=== PATIENT | female | born 2005 | race Two or more races ===

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

== ENCOUNTER 2025-02-03 12:30 | Emergency (ER) | payer MEDICAID, SELFPAY ==
[2025-02-03 12:48] VITALS: BP 125/84; PULSE 69; RESP 16; TEMP 36.8; O2SAT 97; BMI 38.8
--- NOTE | 2025-02-03 12:52 | ED_ITS ---
HPI - Eye Problem General Chief complaint: Eye Problems Stated complaint: L eye swelling Time Seen by Provider: 02/03/25 14:27 Source: patient Mode of arrival: ambulatory Limitations: no limitations History of Present Illness ED Provider: JESSY GOFF PA-C HPI Narrative: 20 year old healthy female presents to the ED today for evaluation of swelling around left eye x a few hours. Reports waking up with swelling around left eye. No crusting/ discharge. Denies eye pain. Patient does not wear corrective lenses. Denies vision changes, fever/chills. Denies trauma/ injury to the eye. No known allergies. No associated nasal congestion, sore throat, ear pain, sob, cough. no new soaps/ lotions/ detergents/ meds. 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 Related Data Previous Rx's ?Medication ?Instructions ?Recorded doxycycline hyclate 100 mg capsule 100 mg PO BID 7 days #14 caps 12/15/21 fluconazole 150 mg tablet 150 mg PO DAILY #1 tab 12/15/21 fluconazole 150 mg tablet 150 mg PO Q3D 2 doses #2 tabs 12/18/21 (Diflucan) metronidazole 500 mg tablet 500 mg PO BID 7 days #14 tabs 12/18/21 cefpodoxime 200 mg tablet 200 mg PO Q12H 10 days #20 tabs 01/22/22 ibuprofen 600 mg tablet 600 mg PO Q8H PRN pain #14 tabs 05/07/24 ibuprofen 600 mg tablet 600 mg PO Q8H PRN fever or pain 08/17/24 #20 tabs nitrofurantoin 100 mg PO Q12H 7 days #14 caps 08/17/24 monohydrate/macrocrystals 100 mg capsule (Macrobid) dicyclomine 20 mg tablet 20 mg PO BID PRN abdominal pain #7 09/13/24 tabs ondansetron HCl 4 mg tablet 4 mg PO Q8H PRN nausea and 09/13/24 vomiting #10 tabs ondansetron HCl 4 mg tablet 4 mg PO Q8H PRN nausea and 09/28/24 vomiting #10 tabs sucralfate 100 mg/mL oral 10 ml PO QID PRN gerd #200 mL 09/28/24 suspension (Carafate) dicyclomine 20 mg tablet 20 mg PO BID PRN diarrhea #7 tabs 10/05/24 ondansetron HCl 4 mg tablet 4 mg PO Q8H PRN nausea and 10/05/24 vomiting #10 tabs diphenhydramine HCl 25 mg capsule 50 mg (2 x 25 mg) PO Q8H PRN 02/03/25 (Benadryl) allergic reaction #30 caps prednisone 20 mg tablet 20 mg PO DAILY 5 days #5 tabs 02/03/25 Allergies Allergy/AdvReac Type Severity Reaction Status Date / Time No Known Allergies Allergy Verified 02/04/25 07:15 Review of Systems Review of Systems: Constitutional: No fever, chills, fatigue, night sweats, weight changes ENT/Mouth: No ear pain, hearing loss, nasal congestion, sinus pain, rhinorrhea, sore throat Eyes: No redness, vision changes, discharge, +eye swelling Cardio: No chest pain, palpitations, JALLOH, orthopnea, peripheral edema Pulm: No SOB, cough, sputum, wheezing, dyspnea, hemoptysis GI: No nausea, vomiting, hematemesis, abdominal pain, diarrhea, constipation, hematochezia, melena : No irregular bleeding, dysuria, frequency, urgency, hesitancy, hematuria, flank pain, urinary flow changes, urinary incontinence or retention MSK: No back pain, neck pain, joint pain, myalgias Skin: No lesions, rashes Neuro: No weakness, numbness, paresthesias, LOC, dizziness, headache Psych: No anxiety/panic, depression, SI/HI, AH/VH All other systems reviewed and are negative. [facility], [facility] Past Medical History Attestation statement: The following information was validated with the patient. Source: old records reviewed and nursing notes reviewed Medical History No pertinent past medical history Social History Social History Smoked in Last 30 Days: No Use of substances other than those prescribed or required for medical reasons: No Advance Directives: No Advance Directives Information Provided: Yes Do you have a plan to hurt others: No Plan Patient : No Physical Exam Vital Signs: Vital Signs: Last Vital Signs Temp 98.3 F 02/03/25 14:37 Pulse 69 02/03/25 14:37 Resp 16 02/03/25 14:37 BP 125/84 02/03/25 14:37 Pulse Ox 97 02/03/25 14:37 O2 Del Method Room Air 02/03/25 14:37 BMI result Body Mass Index 38.8 vital signs stable, afebrile General: Well appearing, in no acute distress. Skin: Warm, dry, intact. No rashes or lesions. Head: Normocephalic, atraumatic. no tenderness to percussion of maxillary sinuses. EENT: Hearing is intact b/l. b/l TMs and EACs wnl. Moist mucous membranes.?Minimal periorbial swelling to L eye w/o erythema/ warmth/ crusting. No enophthalmous or exopthalmous. EOMs intact without pain or entrapment. PERRLA. no photophobia. No obvious foreign body or abrasion. No conjunctival injection or chemosis. No hazy cornea. Neck: Supple without LAD Cardiac: Chest wall symmetric. RRR Lungs: CTA b/l, normal respiratory effort Ext: Upper and lower extremities atraumatic, without tenderness, deformity, swelling or erythema Neuro: AOx3. Normal speech. Ambulating with steady gait Course Course Course Narrative: 02/03/25 1253 TIMOTHY Vigil This is a Rapid Medical Examination (RME) performed by Bao Goff PA-C in triage. Full HPI, ROS, assessment and treatment plan per primary provider in the Main ED. Hx: 19 yo F here for eval of atraumatic L eye swelling on waking this morning. no crusting/discharge. no known allergies. no new soaps/lotions/detergents/meds. PE/vitals: noted periorbital swelling to L eye. no conjunctivitis, no crusting, no drainage, no pain on EOMs. Plan: benadryl given in triage Medications Administered Discontinued Medications Generic Name Dose Route Start Last Admin Trade Name Freq PRN Reason Stop Dose Admin Diphenhydramine HCl 25 mg 02/03/25 12:52 02/03/25 12:55 Diphenhydramine Hcl 25 Mg Capsule PO 02/03/25 12:53 25 mg ONCE ONE Administration Medical Decision Making Medical Decision Making MDM Narrative: 20 year old healthy female presents to the ED today for evaluation of swelling around left eye x a few hours. on exam, minimal periorbial swelling to L eye w/o erythema/ warmth/ crusting. No enophthalmous or exopthalmous. EOMs intact without pain or entrapment. PERRLA. no photophobia. No obvious foreign body or abrasion. No conjunctival injection or chemosis. No hazy cornea. Differential diagnosis includes allergic reaction, seasonal allergies, allergic v viral conjunctivitis, sinusitis. Unlikley corneal abrasion, corneal ulceration, corneal FB, bacterial conjunctivitis. Lower suspicion for iritis, keratitis. Unlikely pre-septal cellulitis, orbital cellulitis, acute angle closure glaucoma. Patient treated with benadryl with near resolution of swelling. I have suspicion for allergic reaction. Will discharge home with benadryl + prednisone. she is agreeable. I do not feel as though any labs/ imaging are warranted at this time. Patient has remained stable throughout ED visit today. Discussed worrisome signs and symptoms and when to return to the ED. All questions answered at this time. Patient is agreeable with disposition and stable for discharge. Differential Diagnosis Differential Diagnoses: The differential diagnosis associated with the presentation includes as above. Admission/Observation Not indicated. External Record Review External record reviewed: Inpatient record Prescription Management I considered prescription management with: Other (prednisone, benadryl) Social Determinants Patient?s care significantly limited by Social Determinants of Health including: Other Social Determinant of Health Critical Care Time Critical Care Time Critical Care Time: No Discharge Plan Discharge Clinical Impression: Allergic reaction Patient Disposition: Home, Self-Care Instructions: General Allergic Reaction (ED) Additional Instructions: You have been evaluated in the Emergency Department today for eye swelling. You were treated with Benadryl with improvement in symptoms. We suspect this is an allergic reaction. You can take Benadryl and Pepcid, which are available over the counter, to help control your symptoms at home. You have also been given a prescription for steroids, please take them as directed starting tomorrow. Please schedule an appointment with your primary care provider for follow up. I have provided you with a referral to an credit support specialist for further testing. Call them to establish care, they will not call you. Return to the Emergency Department if you experience rashes, difficulty breathing or swallowing, lip/mouth/tongue swelling, vomiting, or for any other concerning symptoms. Prescriptions: New diphenhydramine HCl [Benadryl] 25 mg capsule 50 mg PO Q8H PRN (Reason: allergic reaction) Qty: 30 0RF prednisone 20 mg tablet 20 mg PO DAILY 5 Days Qty: 5 0RF No Action doxycycline hyclate 100 mg capsule 100 mg PO BID 7 Days Qty: 14 0RF fluconazole 150 mg tablet 150 mg PO DAILY Qty: 1 0RF metronidazole 500 mg tablet 500 mg PO BID 7 Days Qty: 14 0RF fluconazole [Diflucan] 150 mg tablet 150 mg PO Q3D Qty: 2 0RF cefpodoxime 200 mg tablet 200 mg PO Q12H 10 Days Qty: 20 0RF Rx Instructions: must administer with a meal/food ondansetron HCl 4 mg tablet 4 mg PO Q8H PRN (Reason: nausea and vomiting) Qty: 10 0RF dicyclomine 20 mg tablet 20 mg PO BID PRN (Reason: abdominal pain) Qty: 7 0RF ondansetron HCl 4 mg tablet 4 mg PO Q8H PRN (Reason: nausea and vomiting) Qty: 10 0RF dicyclomine 20 mg tablet 20 mg PO BID PRN (Reason: diarrhea) Qty: 7 0RF ibuprofen 600 mg tablet 600 mg PO Q8H PRN (Reason: pain) Qty: 14 0RF nitrofurantoin monohyd/m-cryst [Macrobid] 100 mg capsule 100 mg PO Q12H 7 Days Qty: 14 0RF Rx Instructions: must administer with a meal/food ibuprofen 600 mg tablet 600 mg PO Q8H PRN (Reason: fever or pain) Qty: 20 0RF ondansetron HCl 4 mg tablet 4 mg PO Q8H PRN (Reason: nausea and vomiting) Qty: 10 0RF sucralfate [Carafate] 100 mg/mL suspension 10 ml PO QID PRN (Reason: gerd) Qty: 200 0RF Rx Instructions: swish in mouth and swallow; use after food/drink Referrals: Warren Fountain MD [Physician] - Interventions: ED Discharge Assessment Last Done: 02/03/25 14:37 Discharge Date/Time: 02/03/25 14:40 Print Language: Amharic
[2025-02-03] MEDS: diphenhydrAMINE HCL 25 MG CAPSULE PO (12:55)
--- NOTE | 2025-02-03 14:27 | PC.NURSE ---
Pt rechecked and eye swelling has improved. Provider examining patient. No new sx. NAD
[2025-02-03 14:37] VITALS: BP 125/84; PULSE 69; RESP 16; TEMP 36.8; O2SAT 97
--- OUTSIDE RECORDS SUMMARY | 2025-02-03 16:01 | XMS_ITS | Clinical Summary ---
Author Organization [facility] Address [address] [place] [address] Phone Care Team Providers Care Associate Automation Engineer Name Role Phone Physician, No Pcp Primary Care Provider Unavaila ble Allergies No known active allergies Medications No known medications Social History Tobacco Use Types Packs/Day Years Used Date Smoking Tobacco: Never Smokeless Tobacco: Never Tobacco Cessation:Counseling Given: Not Answered Comments Unknown Sex and Gender Information Value Date Recorded Sex Assigned at Not on file Legal Sex Female 8:28 PM EST Gender Identity Not on file Sexual Orientation Not on file Obstetrics History Growth Chart Information Age Height Weight [id number] th Percentile BMI Percentile Head Circum Head Circum Percentile Date 19 years 165.1 cm (5' 5 ) 104 kg (230 lb) 98.16%* 2023 * [facility] (Girls, 2-20 Years) Last Filed Vital Signs Vital Sign Reading Time Taken Comments Blood Pressure 156/96 08/15/2024 9:03 PM EST Pulse 76 08/15/2024 9:03 PM EST Temperature 36.6 ??C (97.9 ??F) 08/15/2024 9:03 PM ES T Respiratory Rate 20 08/15/2024 9:03 PM EST Oxygen Saturation 96% 08/15/2024 9:03 PM EST Inhaled Oxygen Concentration - - Weight 104 kg (230 lb) 08/15/2024 9:03 PM EST Height 165.1 cm (5' 5 ) 08/15/2024 9:03 PM EST Body Mass Index 38.27 08/15/2024 9:03 PM EST Plan of Treatment Health Maintenance Due Date Last Done Comments Gonorrhea/Chlamydia Screening 2005 Varicella Vaccines (1 of 2 - 13+ 2-dose series) 2018 Meningococcal B Vaccine (1 o f 2 - Standard) 2021 Annual Well Child Visit (3-2 1 years old) 10/12/2023 Depression Screening 10/12/2023 HIV Screening 10/12/2023 Hepatitis C Screening 10/12/2023 Social Influencers of Health Screening 10/12/2023 Hepatitis B Vaccines (1 of 3 - 19+ 3-dose series) 02/13/2024 COVID-19 Vaccine (3 - 2023-2 5 season) 2024 09/05/2022, 03/31/2021 Influenza Vaccine (Season Ended) 2025 09/05/2022, 08/20/2017 DTaP,Tdap,and Td Vaccines (2 - Td or Tdap) 02/23/2027 02/23/2017 HPV Vaccines Completed 09/05/2022, 02/23/2017 Meningococcal ACWY Vaccine Completed 09/05, 02/23/2017 HIB Vaccines Aged Out No longer eligi ble based on patient's age to complete this topic Hepatitis A Vaccines Aged Out No long er eligible based on patient's age to complete this topic IPV Vaccines Aged Out No longer eligi ble based on patient's age to complete this topic MMR Vaccines Aged Out No longer eligi ble based on patient's age to complete this topic Pneumococcal Vaccine: Pediatrics (0 to 5 Years) and At-Risk Patients (6 to 64 Years) Aged Out No longer eligible b ased on patient's age to complete this topic RSV Immunization Patients Under 20 months Aged Out No longer eligible b ased on patient's age to complete this topic Insurance [facility] MEDICAID ADVANTAGE Care Teams Associate Automation Engineer Relationship Specialty Start Date End Date Physician, No Pcp PCP - General 08/15/24
== END 2025-02-03 14:40 | disposition home or self-care (01) ==
LOC: HO.ED 14:42
PROVIDERS: Emergency Provider Emergency Medicine
DX: L50.0 Allergic urticaria (principal); H57.12 Ocular pain, left eye
CPT/HCPCS: 99282; 99283

== ENCOUNTER 2025-02-04 07:04 | Emergency (ER) | payer MEDICAID, SELFPAY ==
[2025-02-04 07:13] VITALS: BP 128/71; PULSE 69; RESP 18; TEMP 36.6; O2SAT 97; BMI 43.2
--- NOTE | 2025-02-04 07:47 | ED_ITS ---
HPI - Allergic Reaction General Chief complaint: Allergic Reaction Stated complaint: swollen face Time Seen by Provider: 02/04/25 07:41 History of Present Illness ED Provider: Jed Montano MD HPI narrative: This is a 19-year-old female returns to the ER 1 day after given steroid and Benadryl for facial swelling. She reports no recent or obvious exposures including no new foods, travel, topical creams detergents soaps etc.. She has swelling about the eyes and malar region. She denies lingual labial or other oropharyngeal swelling or symptoms. No voice change no difficulty breathing no previous similar Related Data Previous Rx's ?Medication ?Instructions ?Recorded doxycycline hyclate 100 mg capsule 100 mg PO BID 7 days #14 caps 12/15/21 fluconazole 150 mg tablet 150 mg PO DAILY #1 tab 12/15/21 fluconazole 150 mg tablet 150 mg PO Q3D 2 doses #2 tabs 12/18/21 (Diflucan) metronidazole 500 mg tablet 500 mg PO BID 7 days #14 tabs 12/18/21 cefpodoxime 200 mg tablet 200 mg PO Q12H 10 days #20 tabs 01/22/22 ibuprofen 600 mg tablet 600 mg PO Q8H PRN pain #14 tabs 05/07/24 ibuprofen 600 mg tablet 600 mg PO Q8H PRN fever or pain 08/17/24 #20 tabs nitrofurantoin 100 mg PO Q12H 7 days #14 caps 08/17/24 monohydrate/macrocrystals 100 mg capsule (Macrobid) dicyclomine 20 mg tablet 20 mg PO BID PRN abdominal pain #7 09/13/24 tabs ondansetron HCl 4 mg tablet 4 mg PO Q8H PRN nausea and 09/13/24 vomiting #10 tabs ondansetron HCl 4 mg tablet 4 mg PO Q8H PRN nausea and 09/28/24 vomiting #10 tabs sucralfate 100 mg/mL oral 10 ml PO QID PRN gerd #200 mL 09/28/24 suspension (Carafate) dicyclomine 20 mg tablet 20 mg PO BID PRN diarrhea #7 tabs 10/05/24 ondansetron HCl 4 mg tablet 4 mg PO Q8H PRN nausea and 10/05/24 vomiting #10 tabs diphenhydramine HCl 25 mg capsule 50 mg (2 x 25 mg) PO Q8H PRN 02/03/25 (Benadryl) allergic reaction #30 caps prednisone 20 mg tablet 20 mg PO DAILY 5 days #5 tabs 02/03/25 Allergies Allergy/AdvReac Type Severity Reaction Status Date / Time No Known Allergies Allergy Verified 02/04/25 07:15 [facility] Past Medical History Medical History No pertinent past medical history Social History Social History Smoked in Last 30 Days: No Use of substances other than those prescribed or required for medical reasons: No Advance Directives: No Advance Directives Information Provided: Yes Do you have a plan to hurt others: No Plan Patient : No Physical Exam ED Vital Signs: Vital Signs - 24 hr 02/04/25 07:13 Temperature 97.9 F Pulse Rate 69 Respiratory Rate 18 Blood Pressure 128/71 Pulse Oximetry 97 Oxygen Delivery Method Room Air BMI result Body Mass Index 43.2 Const Other: EXAM: Gen: Alert, awake, well appearing, well hydrated. Head: Atraumatic Eyes: Anicteric, Normal conjunctiva. ENT: Moist mucosa, no pallor. ? Neck: Supple. Respiratory: Breathing comfortably, No distress.Clear to auscultation bilaterally, symmetric chest expansion, No wheeze, rales, ronchi. Cardiovascular: Regular rate and rhythm. No murmurs or rub. Well perfused periphery, warm extremities. No edema. ? Abdominal: Soft, no objective distension. No palpable masses or obvious organomegaly. No focal tenderness, no guarding, no rebound tenderness or other peritoneal findings. : No flank tenderness. Neuro: Alert. Gross movement of all extremities intact. ? Vital signs: See flowsheet Medications Administered Discontinued Medications Generic Name Dose Route Start Last Admin Trade Name Freq PRN Reason Stop Dose Admin Diphenhydramine HCl 50 mg 02/04/25 07:57 02/04/25 08:13 Diphenhydramine Hcl 25 Mg Capsule PO 02/04/25 07:58 50 mg ONCE ONE Administration Famotidine 20 mg 02/04/25 07:57 02/04/25 08:13 Famotidine 20 Mg Tablet PO 02/04/25 07:58 20 mg ONCE ONE Administration Prednisone 60 mg 02/04/25 07:57 02/04/25 08:13 Prednisone 20 Mg Tablet PO 02/04/25 07:58 60 mg ONCE ONE Administration Discharge Plan Discharge Clinical Impression: Allergic reaction Patient Disposition: Home, Self-Care Instructions: Allergies (ED) Additional Instructions: DISCHARGE DIAGNOSES: Facial swelling suggestive of allergic reaction HISTORY OF PRESENTATION: 2-3 days of facial swelling no other symptoms EMERGENCY DEPARTMENT COURSE,TESTS, TREATMENTS: While in the ED today you received Benadryl, famotidine to antihistamines and a steroid medication we have prescribed additional medications for home DISCHARGE MEDICATIONS: ?Prednisone was prescribed to your pharmacy yesterday continue to take this as prescribed from the prescription yesterday, you can also buy grbl-[id number]-[id number] famotidine and Benadryl or cetirizine instead of Benadryl to avoid the sedative effects of Benadryl FOLLOW-UP: ?Call your primary or general physician soon as possible to discuss your symptoms, your ED visit and to discuss follow up plans Call your primary doctor for follow up in 2-3 days you should be reassessed INSTRUCTIONS ?& RETURN PRECAUTIONS: If any symptoms change first call your primary physician, if it is after-hours your primary doctors office should have a provider technology solutions architect you can speak with. If the symptoms are severe or very concerning to you then call 911 or return to the ED. As we discussed if you develop fever worsening swelling pain with movement of the eyes weeping or fluid discharge from the face swelling of the mouth tongue face or voice changes or difficulty breathing return immediately back to the emergency department Jed Montano MD Emergency Physician [facility] Prescriptions: No Action doxycycline hyclate 100 mg capsule 100 mg PO BID 7 Days Qty: 14 0RF fluconazole 150 mg tablet 150 mg PO DAILY Qty: 1 0RF metronidazole 500 mg tablet 500 mg PO BID 7 Days Qty: 14 0RF fluconazole [Diflucan] 150 mg tablet 150 mg PO Q3D Qty: 2 0RF cefpodoxime 200 mg tablet 200 mg PO Q12H 10 Days Qty: 20 0RF Rx Instructions: must administer with a meal/food ondansetron HCl 4 mg tablet 4 mg PO Q8H PRN (Reason: nausea and vomiting) Qty: 10 0RF dicyclomine 20 mg tablet 20 mg PO BID PRN (Reason: abdominal pain) Qty: 7 0RF ondansetron HCl 4 mg tablet 4 mg PO Q8H PRN (Reason: nausea and vomiting) Qty: 10 0RF dicyclomine 20 mg tablet 20 mg PO BID PRN (Reason: diarrhea) Qty: 7 0RF diphenhydramine HCl [Benadryl] 25 mg capsule 50 mg PO Q8H PRN (Reason: allergic reaction) Qty: 30 0RF prednisone 20 mg tablet 20 mg PO DAILY 5 Days Qty: 5 0RF ibuprofen 600 mg tablet 600 mg PO Q8H PRN (Reason: pain) Qty: 14 0RF nitrofurantoin monohyd/m-cryst [Macrobid] 100 mg capsule 100 mg PO Q12H 7 Days Qty: 14 0RF Rx Instructions: must administer with a meal/food ibuprofen 600 mg tablet 600 mg PO Q8H PRN (Reason: fever or pain) Qty: 20 0RF ondansetron HCl 4 mg tablet 4 mg PO Q8H PRN (Reason: nausea and vomiting) Qty: 10 0RF sucralfate [Carafate] 100 mg/mL suspension 10 ml PO QID PRN (Reason: gerd) Qty: 200 0RF Rx Instructions: swish in mouth and swallow; use after food/drink Interventions: ED Discharge Assessment Last Done: 02/04/25 08:23 Discharge Date/Time: 02/04/25 08:23 Print Language: Citizen [place]
--- OUTSIDE RECORDS SUMMARY | 2025-02-04 07:59 | XMS_ITS | Clinical Summary ---
Author Organization [facility] Address [address] [place] [address] Phone Care Team Providers Care Business Operations Consultant Name Role Phone Physician, No Pcp Primary [...] History Growth Chart Information Age Height Weight Cpbwux-[id number]-pjkg th Percentile BMI Percentile Head Circum Head Circum Percentile Date 19 years 165.1 cm (5' 5 ) 104 kg (230 lb) 98.16%* 2023 * [facility] (Girls, 2-20 Years) Last Filed Vital Signs [...] patient's age to complete this topic Insurance [facility] MEDICAID ADVANTAGE Care Teams Business Operations Consultant Relationship Specialty Start Date End Date Physician, No Pcp PCP - General 08/15/24
[2025-02-04] MEDS: diphenhydrAMINE HCL 25 MG CAPSULE 50 MG PO (08:13)
[2025-02-04] MEDS: predniSONE 20 MG TABLET 60 MG PO (08:13)
[2025-02-04] MEDS: Famotidine 20 MG TABLET PO (08:13)
--- NOTE | 2025-02-04 08:15 | PC.NURSE ---
Patient presents to ED d/t allergic reaction. Denies SOB, able to manage saliva. VSS and up to date. Patient medicated per MAR, effectiveness pending.
[2025-02-04 08:21] VITALS: BP 128/71; PULSE 69; RESP 18; TEMP 36.6; O2SAT 97
[2025-02-04 08:23] VITALS: BP 128/71; PULSE 69; RESP 18; TEMP 36.6; O2SAT 97
== END 2025-02-04 08:23 | disposition home or self-care (01) ==
PROVIDERS: Emergency Provider Emergency Medicine
DX: L50.0 Allergic urticaria (principal)
CPT/HCPCS: 99283; 99284

== ENCOUNTER 2025-08-12 02:39 | Emergency (ER) | payer OTHER, SELFPAY ==
[2025-08-12 02:42] VITALS: BP 147/72; PULSE 99; RESP 16; TEMP 36.8; O2SAT 98; BMI 39.3
--- NOTE | 2025-08-12 02:57 | ED_ITS ---
HPI - Female Genitourinary General Chief complaint: Urogenital-Female Stated complaint: General Medical Time Seen by Provider: 08/12/25 02:51 Source: patient Limitations: no limitations History of Present Illness ED Provider: Juju Williamson PA-C HPI Narrative: 20-year-old female presents given concern for STD exposure. Patient states she just discovered that her partner has been having sexual intercourse with other individuals. Over the past few days the patient has developed burning and itching of her vaginal tissues with stone colored discharge that is foul smelling. Associated dysuria. Denies abdominal pain, nausea vomiting or fever. Related Data Previous Rx's ?Medication ?Instructions ?Recorded doxycycline hyclate 100 mg capsule 100 mg PO BID 7 day s #14 caps 12/15/21 fluconazole 150 mg tablet 150 mg PO DAILY #1 tab 12/15 fluconazole 150 mg tablet 150 mg PO Q3D 2 doses #2 tab s 12/18/21 (Diflucan) metronidazole 500 mg tablet 500 mg PO BID 7 days #14 t abs 12/18/21 cefpodoxime 200 mg tablet 200 mg PO Q12H 10 days #20 t abs 01/22/22 ibuprofen 600 mg tablet 600 mg PO Q8H PRN pain #14 t abs 05/07/24 ibuprofen 600 mg tablet 600 mg PO Q8H PRN fever or p ain 08/17/24 #20 tabs nitrofurantoin 100 mg PO Q12H 7 days #14 ca ps 08/17/24 monohydrate/macrocrystals 100 mg capsule (Macrobid) dicyclomine 20 mg tablet 20 mg PO BID PRN abdominal p ain #7 09/13/24 tabs ondansetron HCl 4 mg tablet 4 mg PO Q8H PRN nausea and 09/13/24 vomiting #10 tabs ondansetron HCl 4 mg tablet 4 mg PO Q8H PRN nausea and 09/28/24 vomiting #10 tabs sucralfate 100 mg/mL oral 10 ml PO QID PRN gerd #200 m L 09/28/24 suspension (Carafate) dicyclomine 20 mg tablet 20 mg PO BID PRN diarrhea #7 tabs 10/05/24 ondansetron HCl 4 mg tablet 4 mg PO Q8H PRN nausea and 10/05/24 vomiting #10 tabs diphenhydramine HCl 25 mg capsule 50 mg (2 x 25 mg) PO Q8H PRN 02/03/25 (Benadryl) allergic reaction #30 caps prednisone 20 mg tablet 20 mg PO DAILY 5 days #5 tab s 02/03/25 metronidazole 500 mg tablet 500 mg PO BID 7 days #13 t abs 08/12/25 miconazole nitrate 4 % (200 mg)-2 See Rx Instructions vaginal 08/12/25 % (9 gram)vaginal,prefill .COMPLEX #24 grams appl,cream Allergies Allergy/AdvReac Type Severity Reaction Status Date / Time No Known Allergies Allergy Verified 08/12/25 02:44 Review of Systems Review of Systems: Yes all other systems are reviewed and are negative Constitutional: Constitutional: Denies fatigue and Denies fever(s) Cardiovascular: Cardiovascular: Denies chest pain and Denies dyspnea Respiratory: Respiratory: Denies dyspnea Gastrointestinal: Gastrointestinal: Denies abdominal pain, Denies nausea and Denies vomiting Genitourinary: Genitourinary: Denies genital pruritis, Denies genital lesions, Reports dysuria, Denies pelvic pain, Reports vaginal discharge, Reports vaginal odor and Reports vaginal pruritus Endocrine: Endocrine: Denies fatigue REPLACED BY [facility] Past Medical History Attestation statement: The following information was validated with the patient. Medical History No pertinent past medical history Social History Social History Advance Directives: No Advance Directives Information Provided: Yes Physical Exam Vital Signs: Vital Signs: Last Vital Signs Temp 98 F 08/12/25 04:48 Pulse 82 08/12/25 04:48 Resp 16 08/12/25 04:48 BP 138/72 08/12/25 04:48 Pulse Ox 98 08/12/25 04:48 O2 Del Method Room Air 08/12/25 04:48 BMI result Body Mass Index 39.3 Const: Other: Alert, Orientation/consciousness: patient oriented x3 Resp: Effort & Inspection: normal respiratory effort Cardio: Other: Normal peripheral perfusion GI: Other: Obese abdomen, soft, nontender no guarding : Other: Normal external genitalia, opaque foul smelling discharge noted in vaginal canal per cervical os, the os itself is not friable, no bleeding, the exam was overall uncomfortable, no CMT tenderness Skin: Other: Warm dry no rash Neuro: General: patient oriented x3, gait normal, no focal motor deficits and CN's II-XI intact bilaterally Psych: Other: Cooperative Course Reevaluation(s) Reevaluation #1: Patient still has labs pending, we have already discussed empiric treatment, I am keeping her contact I will contact her this evening and send additional prescriptions to the pharmacy if she tests positive for any organisms Time: 04:25 Reevaluation #2: Calling the patient back now, gonorrhea and chlamydia negative Time: 22:48 Medications Administered Discontinued Medications Generic Name Dose Route Start Last Admin Trade Name Mundo PRN Reason Stop Dose Admin Azithromycin 1,000 mg 08/12/25 04:20 08/12/25 04:32 Azithromycin 500 Mg Tablet PO 08/12/25 04:21 1,000 mg ONCE ONE Administration Ceftriaxone Sodium 250 mg/ 0 mg 08/12/25 04:20 08/12/25 04:33 Lidocaine HCl 0.9 ml IM 08/12/25 04:21 250 kit ONCE ONE Administration Metronidazole 500 mg 08/12/25 04:37 08/12/25 04:46 Metronidazole 500 Mg Tablet PO 08/12/25 04:38 500 mg ONCE ONE Administration Ondansetron HCl 8 mg 08/12/25 04:20 08/12/25 04:46 Ondansetron Odt 8 Mg Tab.Rapdis TRANSLINGU 08/12/25 04:21 8 mg ONCE ONE Administration Medical Decision Making Medical Decision Making MDM Narrative: 20-year-old female presents given concern for STD exposure. Patient states she just discovered that her partner has been having sexual intercourse with other individuals. Over the past few days the patient has developed burning and itching of her vaginal tissues with stone colored discharge that is foul smelling. Associated dysuria. Denies abdominal pain, nausea vomiting or fever. Problem: Likely exposure to STD History: Per patient I have considered the following differential diagnoses: Gonorrhea, chlamydia, cervicitis, PID, TOA, UTI, BV, trich, candidal infection Plan: Pelvic exam performed, sample sent. I was able to speak with the patient by herself, I will be treating her empirically for suspect STD exposure. No indication for imaging, I have low suspicion for TOA, she is not having any abdominal or pelvic pain. I have independently reviewed the following tests: Labs: Differential Diagnosis Differential Diagnoses: The differential diagnosis associated with the prese ntation includes See [facility] Admission/Observation Consideration of admission/observation: Escalation of care including admission/o bservation considered Not applicable Lab Data [facility] Lab Attestation statement: I reviewed the patient's lab results. Labs: Lab Results 08/12/25 08/12/25 08/12/25 Range/Units 02:58 03:00 03:23 Urine Color Yellow Urine Appearance Clear Urine pH 6.0 (5.0-9.0) Ur Specific [place] >= 1.030 H (1.005-1.025) Urine Protein Trace (Neg-Trace) mg/dL Urine Glucose (UA) Negative (Negative) mg/dL Urine Ketones Trace (Negative) mg/dL Urine Blood Negative (Negative) Urine Nitrite Negative (Negative) Ur Leukocyte Esterase Small (1+) H (Negative) Urine RBC 6-10 H (0-2) /HPF Urine WBC 0-5 (0-5) /HPF Ur Squamous Epith Cells 3-5 (0-2) /HPF Urine Bacteria Trace (None Seen) Hyaline Casts 0-2 (0-2) /LPF Urine Test NEGATIVE (NEGATIVE) Ur N gonorrhoeae DNA (PCR) NOT DETECTED (Not Detect.) Ur Chlamydia DNA (PCR) NOT DETECTED (Not Detect.) T. vaginalis (PCR) NOT DETECTED (Not Detect) Bact vaginosis (PCR) POSITIVE A (Negative) C. krusei/glabrata (PCR) NOT DETECTED (Not Detect) Evangelina group (PCR) DETECTED A (Not Detect) Discharge Plan Discharge Clinical Impression: Bacterial vaginosis, Evangelina infection of genital region Patient Disposition: Home, Self-Care Instructions: Bacterial Vaginosis (ED), Yeast Infection (ED), Vaginal Discharge (ED) Additional Instructions: You still have lab studies pending. Thus far, you do not have a urinary tract infection and you were not . You were found to have bacterial vaginosis and a yeast infection. We empirically treated you for suspect gonorrhea and chlamydia. If you test positive for any other sexually transmitted disease, or another form of vaginitis, I will send prescriptions to your pharmacy. I will call with the results this evening after 8:00 p.m. take the Flagyl as directed for bacterial vaginosis. Use the anti fungal cream as directed for your vaginal yeast infection. Moving forward, your sexual partner should be tested and treated as well. You should abstain from sexual intercourse until you receive results and complete treatment. Prescriptions: New metronidazole 500 mg tablet 500 mg PO BID 7 Days Qty: 13 0RF miconazole nitrate 4 % (200 mg)- 2 % (9 gram) comb pack,prefill appl, cream See Rx Instructions .ROUTE .COMPLEX Qty: 24 0RF Rx Instructions: put 1 supp in vagina at bedtime x 3nites;use cream on area outside vagina 2X/day for up to 7days No Action doxycycline hyclate 100 mg capsule 100 mg PO BID 7 Days Qty: 14 0RF fluconazole 150 mg tablet 150 mg PO DAILY Qty: 1 0RF metronidazole 500 mg tablet 500 mg PO BID 7 Days Qty: 14 0RF fluconazole [Diflucan] 150 mg tablet 150 mg PO Q3D Qty: 2 0RF cefpodoxime 200 mg tablet 200 mg PO Q12H 10 Days Qty: 20 0RF Rx Instructions: must administer with a meal/food ondansetron HCl 4 mg tablet 4 mg PO Q8H PRN (Reason: nausea and vomiting) Qty: 10 0RF dicyclomine 20 mg tablet 20 mg PO BID PRN (Reason: abdominal pain) Qty: 7 0RF ondansetron HCl 4 mg tablet 4 mg PO Q8H PRN (Reason: nausea and vomiting) Qty: 10 0RF dicyclomine 20 mg tablet 20 mg PO BID PRN (Reason: diarrhea) Qty: 7 0RF diphenhydramine HCl [Benadryl] 25 mg capsule 50 mg PO Q8H PRN (Reason: allergic reaction) Qty: 30 0RF prednisone 20 mg tablet 20 mg PO DAILY 5 Days Qty: 5 0RF ibuprofen 600 mg tablet 600 mg PO Q8H PRN (Reason: pain) Qty: 14 0RF nitrofurantoin monohyd/m-cryst [Macrobid] 100 mg capsule 100 mg PO Q12H 7 Days Qty: 14 0RF Rx Instructions: must administer with a meal/food ibuprofen 600 mg tablet 600 mg PO Q8H PRN (Reason: fever or pain) Qty: 20 0RF ondansetron HCl 4 mg tablet 4 mg PO Q8H PRN (Reason: nausea and vomiting) Qty: 10 0RF sucralfate [Carafate] 100 mg/mL suspension 10 ml PO QID PRN (Reason: gerd) Qty: 200 0RF Rx Instructions: swish in mouth and swallow; use after food/drink Interventions: ED Discharge Assessment Last Done: 08/12/25 04:48 Discharge Date/Time: 08/12/25 04:49 Print Language: Yoruba
--- OUTSIDE RECORDS SUMMARY | 2025-08-12 03:28 | XMS_ITS | Clinical Summary ---
Author Organization [facility] Address [address] [place] [address] Phone Care Team Providers Care Stonecutter Name Role Phone Physician, No Pcp Primary Care Provider Unavaila ble Allergies No known active allergies Medications No known medications Encounters Date Type Department Care Team Description 07/19/2025 12:00 PM EST - 07/19/2025 2:50 PM EST Emergency [facility] Emergency [address] [place] [address] Darren Tamayo MD Vaginal bleeding (Primary Dx) Discharge Disposition: Home or Self Care from Last 3 Months Social History Tobacco Use Types Packs/Day Years Used Date Smoking Tobacco: Never Smokeless Tobacco: Current Tobacco Cessation:Ready to Q uit: Not Asked; Counseling Given: Not Answered Comments Yes Sex and Gender Information Value Date Recorded Sex Assigned at Not on file Legal Sex Female 8:28 PM EST Gender Identity Not on file Sexual Orientation Not on file Obstetrics History Para Term AB IAB SAB Ectopic Multiple Livin g Live Births 1 Date Outcome GA Total Labor Labor/2nd/3rd Weight Sex Type Anes PTL Renae A1 A5 Name Clin Current Last Filed Vital Signs Vital Sign Reading Time Taken Comments Blood Pressure 126/84 07/19/2025 1:34 PM EST Pulse 65 07/19/2025 1:34 PM EST Temperature 36.7 C (98.1 F) 07/19/2025 1:34 PM EST Respiratory Rate 16 07/19/2025 1:34 PM EST Oxygen Saturation 100% 07/19/2025 11:50 AM EST Inhaled Oxygen Concentration - - Weight 109 kg (240 lb) 07/19/2025 11:50 AM EST Height 165.1 cm (5' 5 ) 07/19/2025 11:50 AM EST Body Mass Index 39.94 07/19/2025 11:50 AM EST Plan of Treatment Health Maintenance Due Date Last Done Comments Gonorrhea/Chlamydia Screening 2005 Meningococcal B Vaccine (1 o f 2 - Standard) 2021 Annual Well Child Visit (3-2 1 years old) 10/12/2023 Cholesterol Screening (Lipid Panel) 10/12/2023 HIV Screening 10/12/2023 Hepatitis C Screening 10/12/2023 Social Influencers of Health Screening 10/12/2023 Hepatitis B Vaccines (1 of 3 - 19+ 3-dose series) 02/13/2024 Depression Screening 09/17/2024 COVID-19 Vaccine (3 - 2024-2 6 season) 2025 09/05/2022, 03/31/2021 Influenza Vaccine (#1) 2025 2, 08/20/2017 DTaP,Tdap,and Td Vaccines (2 - Td or Tdap) 02/23/2027 02/23/2017 RSV Immunization Adult Patients (1 - 1-dose 75+ series) 02/13/2080 HPV Vaccines Completed 09/05/2022, 02/23/2017 Meningococcal ACWY [...] 5 Years) and At-Risk Patients (6 to 49 Years) Aged Out No longer eligible b ased on patient's age to complete this topic RSV Immunization Patients Under 20 months Aged Out No longer eligible b ased on patient's age to complete this topic Procedures Procedure Name Priority Date/Time Associated Diagnosis Comments HCG, QUANTITATIVE STAT 07/19/2025 12: 16 PM EST from Last 3 Months Results * hCG Quantitative (07/19/2025 12:16 PM EST) hCG Quant <1 mIU/mL LAB CHEMISTRY METHOD 07/19/2025 1:43 PM EST [facility] Blood Venous blood specimen / Unknown Venipuncture / Unknown 07/19/2025 12:16 PM EST 07/19/2025 1:14 PM EST Narrative KAT LINDSEY PA ([facility] - 07/19/2025 1:43 PM EST Quantitative HCG Reference Ranges Time after Conception MIU/ML 0.2-1 Week 5-50 1-2 Weeks 50-500 2-3 Weeks 100-5,000 3-4 Weeks 500-10,000 4-5 Weeks 1,000-50,000 5-6 Weeks 10,000-100,000 6-8 Weeks 15,000-200,000 2-3 Months 10,000-100,000 2nd Trimester 1,000-94,000 3rd Trimester 2,500-90,000 Non- Females 1-3 Jordyn Hernandez PURCHASING MANAGER LAB BLOOD ORDERABLES Tania l Result [facility] [address] [place] [address], from Last 3 Months Insurance [facility] MEDICAID ADVANTAGE Care Teams Stonecutter Relationship Specialty Start Date End Date Physician, No Pcp PCP - General 08/15/24
[2025-08-12 03:33] LABS: Appearance Urine Clear; Glucose Urine UA Negative (Negative); PH 6.0 (5.0-9.0); Specific Gravity - Urine >= 1.030 (1.005-1.025); UMIC TRIGGER UACC YES
[2025-08-12 03:51] LABS: UPreg QC Valid YES
[2025-08-12 04:14] LABS: UACC Culture Trigger YES
[2025-08-12 04:31] LABS: Bacterial Vaginosis PCR POSITIVE (Negative); Candida Group PCR DETECTED (Not Detect); Candida glab krusei PCR NOT DETECTED (Not Detect); Trichomonas vaginalis PCR NOT DETECTED (Not Detect)
[2025-08-12] MEDS: cefTRIAXone sodium 250 MG, Lidocaine HCl 1 % MPF 0.9 ML IM (04:33)
[2025-08-12 04:48] VITALS: BP 138/72; PULSE 82; RESP 16; TEMP 36.6; O2SAT 98
[2025-08-12 05:02] LABS: CT PCR Urine NOT DETECTED (Not Detect.); NG PCR Urine NOT DETECTED (Not Detect.)
== END 2025-08-12 04:49 | disposition home or self-care (01) ==
PROVIDERS: Physician Assistant Medical; Emergency Provider Emergency Medicine
DX: N76.0 Acute vaginitis (principal); B37.31 Acute candidiasis of vulva and vagina; Z20.2 Contact with and (suspected) exposure to infections with a predominantly sexual mode of transmission
CPT/HCPCS: 81001; 81025; 81515; 87086; 87491; 87591; 96372; 99284; J0696; J2003